=== PATIENT | female | born 1965 | race Two or more races ===

== ENCOUNTER 2024-08-25 14:01 | Inpatient (IN) | payer MEDICAID, BC ==
[~2024-08-25] VITALS: Ht 152.4 cm; Wt 83.9 kg
[2024-08-25] MEDS: MORPHINE SULFATE INJ 2 MG/ml SYRG IV ONE (15:00)
[2024-08-25] MEDS: SODIUM CHLORIDE 0.9% 500 ML IV ONE (15:00)
[2024-08-25 15:18] LABS: Hematocrit 40.5 % (36.0-46.0); Hemoglobin 13.3 g/dL (12.2-16.2); Mean Corpuscular Hemoglobin 29.7 pg (28.0-32.0); Mean Corpuscular Volume 90.6 fL (80.0-100.0); Nucleated Red Blood Cells % 0.1 %
[2024-08-25 15:19] LABS: Urine Budding Yeast MODERATE /hpf (None Seen); Urine Protein, UAD TRACE (Negative)
[2024-08-25 15:25] LABS: Potassium 4.2 mmol/L (3.5-5.1); Sodium 144 mmol/L (136-145)
[2024-08-25 15:26] LABS: Anion Gap 8 (5-15); Carbon Dioxide 28 mmol/L (20-31)
[2024-08-25 15:27] LABS: Calcium 9.4 mg/dL (8.7-10.4); Chloride 108 mmol/L (98-107)
[2024-08-25 15:31] LABS: BUN/Creatinine Ratio 21.3 (10.0-20.0); Blood Urea Nitrogen 13 mg/dL (9-23); Glucose 95 mg/dL (74-106)
--- NOTE | 2024-08-25 15:45 | ED.PDOC ---
GI ASSESSMENT HPI Comments Patient is a 59-year-old female with a past medical history of hypertension presented to the ED with a chief complaint of lower abdominal pain for 1 day. Patient reports that last night she started to have lower abdominal pain which was intermittent with the episodes of severe pain, crampy and sharp in character, associated with multiple episodes of watery diarrhea, pain improved every time after she has a bowel movement, associated with the chills. Patient denied any nausea or vomiting, no blood in stool, no recent sick contacts, no fever, no palpitations. Patient denies any constipation and reports regularly she has bowel movements every day or every other day. Chief Complaint: Abdominal Pain Time Seen by MD: 14:42 Primary Care Provider: Brady Burt Notes: Nurses Notes, Medications, Allergies Allergies: Coded Allergies: NO KNOWN ALLERGIES (Unverified , 09/30/12) Information Source: Patient, Relative (GrandChild) Mode of Arrival: Ambulatory Timing: Hours Duration: Since onset, Intermittent Quality: Cramping, Sharp Vomitus: None Stool: Watery Severity: Mild, Moderate Recent: None Recent Hx of: Abdominal Surgery Pain Location: RLQ, LLQ, Suprapubic Modifying Factors: Nothing Associated sign and symptoms: Diarrhea Past Medical History Past Medical History (Other): Hypertension, migraine Surgical History: Cholecystectomy, Hysterectomy ALLERGIST History: No Pertinent ALLERGIST History Family History Family History: Reviewed,noncontributory to illness, No family hx of Cancer, No family hx of DM, No family hx of Heart niles, No family hx of HTN, No family hx ofKidney niles, No family hx of Liver niles, No family hx of Lung niles, No family hx of Stroke Social History Smoker: Non-Smoker Alcohol: Denies ETOH Use Drugs: Denies Drug Use Constitutional: reports: chills, fatigue EENTM: denies: blurred vision, double vision, ear bleeding, ear discharge, ear drainage, ear pain, ear ringing, eye pain, eye redness, hearing loss, mouth pain, mouth swelling, nasal discharge, nose bleeding, nose congestion, nose pain, photophobia, tearing, throat pain, throat swelling, voice changes, others Respiratory: denies: cough, hemoptysis, orthopnea, SOB at rest, shortness of breath, SOB with excertion, stridor, wheezing, others Cardiovascular: denies: chest pain, dizzy spells, diaphoresis, Dyspnea on exertion, edema, irregular heart beat, left arm pain, lightheadedness, palpitations, PND, syncope, others Gastrointestinal: reports: abdominal pain (Left lower quadrant, suprapubic, right lower quadrant tenderness), diarrhea Genitourinary: denies: abnormal vagina bleeding, burning, dyspareunia, dysuria, flank pain, frequency, hematuria, incontinence, pain, , vagina discharge, urgency, others Neurological: denies: dizziness, fainting, headache, left sided numbness, left sided weakness, numbness, paresthesia, pre-existing deficit, right sided numbness, right sided weakness, seizure, speech problems, tingling, tremors, weakness, others Musculoskeletal: denies: back pain, gout, joint pain, joint swelling, muscle pain, muscle stiffness, neck pain, others Integumetry: denies: bruises, change in color, change in hair/nails, dryness, laceration, lesions, lumps, rash, wounds, others Allergic/Immunocompromised: denies: Difficulty Healing, Frequent Infections, Hives, Itching, others Hematologic/Lymphatic: denies: anemia, blood clots, easy bleeding, easy bruising, swollen glands, others Endocrine: denies: excessive hunger, excessive sweating, excessive thirst, excessive urination, flushing, intolerance to cold, intolerance to heat, unexplained weight gain, unexplained weight loss, others Psychiatric: denies: anxiety, bipolar disorder, depression, hopeless, panic disorder, schizophrenia, sleepless, suicidal, others Physical Exam General Appearance: Mild Distress HEENT: Normal ENT Inspection, Pharynx Normal, TMs Normal Neck: Full Range of Motion, Non-Tender, Normal, Normal Inspection Respiratory: Chest Non-Tender, Lungs Clear, No Accessory Muscle Use, No Respiratory Distress, Normal Breath Sounds Cardiovascular: No Edema, No JVD, No Murmur, No Gallop, Normal Peripheral Pulses, Regular Rate/Rhythm Breast Exam: Deferred Gastrointestinal: LLQ, RLQ, Suprapubic, Tenderness Genitalia: Deferred Pelvic: Deferred Rectal: Deferred Extremities: No calf tenderness, Normal capillary refill, Normal inspection, Normal range of motion, Non-tender, No pedal edema Neurologic: Alert, 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 Was a procedure done?: No GI differential Dx Differential Diagnosis: Other Other Differential Diagnosis Diverticulitis, appendicitis, ovarian abscess, colitis, proctitis, gastroenteritis X-Ray, Labs, Meds, VS Vital Signs Date Time Temp Pulse Resp B/P (MAP) Pulse Ox O2 Delivery O2 Flow Rate FiO2 08/25/24 17:27 78 22 145/84 08/25/24 15:46 93 18 95 Room Air 08/25/24 15:46 91 18 129/85 (100) 94 08/25/24 15:00 90 18 129/85 08/25/24 14:08 98.5 95 18 138/74 (95) 95 98.5 Lab Test 08/25/24 15:06 08/25/24 14:14 Range/Units White Blood Count 11.0 H 4.4-10.8 10^3/uL Red Blood Count 4.46 4.0-5.20 10^6/uL Hemoglobin 13.3 12.2-16.2 g/dL Hematocrit 40.5 36.0-46.0 % Mean Corpuscular Volume 90.6 80.0-100.0 fL Mean Corpuscular Hemoglobin 29.7 28.0-32.0 pg Mean Corpuscular Hemoglobin Concent 32.8 32.0-36.0 g/dL Red Cell Distribution Width 14.1 11.8-14.3 % Platelet Count 290 140-450 10^3/uL Mean Platelet Volume 8.4 6.9-10.8 fL Neutrophils (%) (Auto) 70.6 37.0-80.0 % Lymphocytes (%) (Auto) 23.1 10.0-50.0 % Monocytes (%) (Auto) 5.3 0.0-12.0 % Eosinophils (%) (Auto) 0.8 0.0-7.0 % Basophils (%) (Auto) 0.2 0.0-2.0 % Neutrophils # (Auto) 7.8 1.6-8.6 10 ^3/uL Lymphocytes # (Auto) 2.5 0.4-5.4 10 ^3/uL Monocytes # (Auto) 0.6 0-1.3 10 ^3/uL Eosinophils # (Auto) 0.1 0-0.8 10 ^3/uL Basophils # (Auto) 0 0-0.2 10 ^3/uL Nucleated Red Blood Cells 0.1 % Sodium Level 144 136-145 mmol/L Potassium Level 4.2 3.5-5.1 mmol/L Chloride Level 108 H 98-107 mmol/L Carbon Dioxide Level 28 20-31 mmol/L Anion Gap 8 5-15 Blood Urea Nitrogen 13 9-23 mg/dL Creatinine 0.61 0.550-1.02 mg/dL Glomerular Filtration Rate Calc 102 >90 mL/min BUN/Creatinine Ratio 21.3 H 10.0-20.0 Serum Glucose 95 74-106 mg/dL Calcium Level 9.4 8.7-10.4 mg/dL Urine Color Colorless Yellow Urine Clarity Turbid H Clear Urine pH 8.0 5.0-9.0 Urine Specific [place] 1.021 1.001-1.035 Urine Protein Trace H Negative Urine Ketones Negative Negative Urine Blood 2+ H Negative /uL Urine Nitrite Negative Negative Urine Bilirubin Negative Negative Urine Urobilinogen Normal Negative mg/dL Urine Leukocyte Esterase 2+ Negative /uL Urine RBC 24 0 - 4 /hpf Urine Microscopic WBC 13 H 0-5 /HPF Urine Squamous Epithelial Cells Mod <5 /hpf Urine Bacteria None seen None Seen /hpf Urine Yeast (Budding) Moderate None Seen /hpf Urine Glucose Normal Normal mg/dL Current Medications Medications (Trade) Dose Ordered Sig/Felice Route Start Time Stop Time Status Last Admin Sodium Chloride 500 ml @ 500 mls/hr Q1H ONCE IV 08/25/24 15:00 08/25/24 15:59 DC 08/25/24 15:00 Morphine Sulfate 2 mg ONCE ONCE IV 08/25/24 15:00 08/25/24 15:04 DC 08/25/24 15:00 Time of 1ST Reevaluation: 17:12 Reevaluation 1ST: Unchanged Patient Education/Counseling: Diagnosis, Treatment Family Education/Counseling: No Family Present SEPSIS Sepsis Screen Date sepsis recognized/suspect: Aug 25, 2024 Time Sepsis recognized/suspect: 1408 Recent Procedure: No On Antibiotic Therapy: No Respiratory Rate >20: No Heart Rate >90: No Temp<36 C (96.8 F) or >38.3 C: No SBP <90 or MAP <65 mmHG: No New Acute Mental Status Change: No Is the patient on CPAP, BIPAP,: No Physician Orders Ct Ab Pel Wo Con-No Oral Or Iv (08/25/24 14:47) Heplock Iv (08/25/24 ) Vital Signs Date Time Temp Pulse Resp B/P (MAP) Pulse Ox O2 Delivery O2 Flow Rate FiO2 08/25/24 17:27 78 22 145/84 08/25/24 15:46 93 18 95 Room Air 08/25/24 15:46 91 18 129/85 (100) 94 08/25/24 15:00 90 18 129/85 08/25/24 14:08 98.5 95 18 138/74 (95) 95 98.5 Laboratory Tests Test 08/25/24 15:06 White Blood Count 11.0 10^3/uL (4.4-10.8) H Medications Medications Dose Ordered Sig/Felice Route Start Time Stop Time Status Last Admin Dose Admin Morphine Sulfate 2 mg ONCE ONCE IV 08/25/24 15:00 08/25/24 15:04 DC 08/25/24 15:00 Sodium Chloride 500 ml @ 500 mls/hr Q1H ONCE IV 08/25/24 15:00 08/25/24 15:59 DC 08/25/24 15:00 Departure 1 Departure Time of Disposition: 18:00 Impression: Primary Impression: Gastroenteritis Additional Impressions: Colitis Proctitis Irritable bowel syndrome UTI (urinary tract infection) Pulmonary nodule Disposition: ADMITTED INPATIENT Condition: Fair Critical Care Note Critical Care Time?: No Stability Stability form required: No Heart Score Heart Score: Heart Score Response (Comments) Value History N/A 0 EKG N/A 0 Age N/A 0 Risk Factors N/A 0 Troponin N/A 0 Total 0 LANA ADAME RESIDENT Aug 25, 2024 15:45
--- NOTE | 2024-08-25 16:31 | DVH ---
Indication: lower abd pain Technique: CT axial images of the abdomen and pelvis are obtained without contrast. Coronal and sagit onur reformats were obtained. Radiation Dose Information: CTDI volume is 22.78 mGy. Dose-length product is 1265.31 mGy*cm Comparison: None FINDINGS: There is limited interpretation of the abdomen and pelvis without administration of intravenous contr ast. Lung bases demonstrate 6 mm right middle lobe nodule. Adrenal glands, spleen, pancreas unremarkable in shape. Cholecystectomy. Liver unremarkable in shap e. No hydronephrosis, nephrolithiasis. Small hiatal hernia. Stomach partially distended. Small bowel loops normal in caliber. Descending and rectosigmoid colon wall thickening with surrounding stranding. Colonic diverticula. N ormal appendix. Bladder partially distended. No free pelvic fluid. No inguinal lymphadenopathy. No aggressive osseous process. IMPRESSION: Descending and rectosigmoid colon wall thickening with surrounding stranding. Differential considera tions include colitis, inflammatory bowel disease. Cholecystectomy. 6 mm right middle lobe pulmonary nodule. Recommend follow-up per Fleischner society criteria. Low wa ll Other findings as described
[2024-08-25] MEDS: cefTRIAXone 1GM/50ML D5W 50 ML IV ONE (18:39)
[2024-08-25 20:44] VITALS: RESP 18; O2SAT 98
[2024-08-25 20:58] VITALS: BP 153/92; PULSE 87; RESP 18; TEMP 96.5; O2SAT 96
[2024-08-25 21:15] VITALS: PULSE 87; RESP 18; O2SAT 96
[2024-08-25] MEDS ORDERED: HYDROcodone-ACET 5/325MG TAB PO PRN (22:00)
[2024-08-25] MEDS ORDERED: ONDANSETRON HCL 4 MG/2 ML VIAL IV PRN (22:00)
--- NOTE | 2024-08-25 22:03 | DVHHP2 ---
History of Present Illness Reason for Visit: Abdominal pain History of Present Illness 59-year-old female presents for evaluation of abdominal pain. Patient reports a one day history of lower abdominal pain with associated episodes of nausea and watery diarrhea. Denies fever or chills. No other acute complaints reported. Past Medical History Hypertension Past Surgical History Hysterectomy, cholecystectomy Review of Systems Review of Systems Review of systems are currently negative otherwise addressed in HPI. Allergies: Coded Allergies: NO KNOWN ALLERGIES (Unverified , 09/30/12) Exam Vital Signs Vital Signs Date Time Temp Pulse Resp B/P (MAP) Pulse Ox O2 Delivery O2 Flow Rate FiO2 08/25/24 20:58 96.5 87 18 153/92 (112) 96 96.5 08/25/24 20:44 Room Air* 0 21 Exam Gen: 59-year-old female in mild distress Skin: Warm, dry, normal color and texture, no rash. HEENT: Normocephalic atraumatic, mucous membranes moist and pink. Neck: Cervical and supraclavicular nodes normal without enlargement, trachea is midline, thyroid gland is normal without masses. Pulmonary: Clear to auscultation and percussion bilaterally. Cardiac: Regular rate and rhythm. No murmur Abdomen: Soft, nontender, nondistended, bowel sounds present all 4 quadrants, no guarding, no rigidity, no organomegaly. Extremities: No cyanosis, clubbing, no edema Neuro: Cranial nerves II through XII grossly intact, normal affect and speech, no focal motor deficits. Labs/Xrays ORDERING PHYSICIAN: LANA ADAME RESIDENT PROCEDURE(s): ABPL - CT AB PEL WO CON-NO ORAL OR IV REASON: lower abd pain ORDER NUMBER(s): [id number], ACCESSION NUMBER(s): [id number] Indication: lower abd pain Technique: CT axial images of the abdomen and pelvis are obtained without contrast. Coronal and sagittal reformats were obtained. Radiation Dose Information: CTDI volume is 22.78 mGy. Dose-length product is 1265.31 mGy*cm Comparison: None FINDINGS: There is limited interpretation of the abdomen and pelvis without administration of intravenous contrast. Lung bases demonstrate 6 mm right middle lobe nodule. Adrenal glands, spleen, pancreas unremarkable in shape. Cholecystectomy. Liver unremarkable in shape. No hydronephrosis, nephrolithiasis. Small hiatal hernia. Stomach partially distended. Small bowel loops normal in caliber. Descending and rectosigmoid colon wall thickening with surrounding stranding. Colonic diverticula. Normal appendix. Bladder partially distended. No free pelvic fluid. No inguinal lymphadenopathy. No aggressive osseous process. IMPRESSION: Descending and rectosigmoid colon wall thickening with surrounding stranding. Differential considerations include colitis, inflammatory bowel disease. Cholecystectomy. 6 mm right middle lobe pulmonary nodule. Recommend follow-up per Fleischner society criteria. Low wall Other findings as described ATED BY: MONSERRAT TIMMONS MD Labs Test 08/25/24 15:06 08/25/24 14:14 Range/Units White Blood Count 11.0 H 4.4-10.8 10^3/uL Red Blood Count 4.46 4.0-5.20 10^6/uL Hemoglobin 13.3 12.2-16.2 g/dL Hematocrit 40.5 36.0-46.0 % Mean Corpuscular Volume 90.6 80.0-100.0 fL Mean Corpuscular Hemoglobin 29.7 28.0-32.0 pg Mean Corpuscular Hemoglobin Concent 32.8 32.0-36.0 g/dL Red Cell Distribution Width 14.1 11.8-14.3 % Platelet Count 290 140-450 10^3/uL Mean Platelet Volume 8.4 6.9-10.8 fL Neutrophils (%) (Auto) 70.6 37.0-80.0 % Lymphocytes (%) (Auto) 23.1 10.0-50.0 % Monocytes (%) (Auto) 5.3 0.0-12.0 % Eosinophils (%) (Auto) 0.8 0.0-7.0 % Basophils (%) (Auto) 0.2 0.0-2.0 % Neutrophils # (Auto) 7.8 1.6-8.6 10 ^3/uL Lymphocytes # (Auto) 2.5 0.4-5.4 10 ^3/uL Monocytes # (Auto) 0.6 0-1.3 10 ^3/uL Eosinophils # (Auto) 0.1 0-0.8 10 ^3/uL Basophils # (Auto) 0 0-0.2 10 ^3/uL Nucleated Red Blood Cells 0.1 % Sodium Level 144 136-145 mmol/L Potassium Level 4.2 3.5-5.1 mmol/L Chloride Level 108 H 98-107 mmol/L Carbon Dioxide Level 28 20-31 mmol/L Anion Gap 8 5-15 Blood Urea Nitrogen 13 9-23 mg/dL Creatinine 0.61 0.550-1.02 mg/dL Glomerular Filtration Rate Calc 102 >90 mL/min BUN/Creatinine Ratio 21.3 H 10.0-20.0 Serum Glucose 95 74-106 mg/dL Calcium Level 9.4 8.7-10.4 mg/dL Urine Color Colorless Yellow Urine Clarity Turbid H Clear Urine pH 8.0 5.0-9.0 Urine Specific [place] 1.021 1.001-1.035 Urine Protein Trace H Negative Urine Ketones Negative Negative Urine Blood 2+ H Negative /uL Urine Nitrite Negative Negative Urine Bilirubin Negative Negative Urine Urobilinogen Normal Negative mg/dL Urine Leukocyte Esterase 2+ Negative /uL Urine RBC 24 0 - 4 /hpf Urine Microscopic WBC 13 H 0-5 /HPF Urine Squamous Epithelial Cells Mod <5 /hpf Urine Bacteria None seen None Seen /hpf Urine Yeast (Budding) Moderate None Seen /hpf Urine Glucose Normal Normal mg/dL Assessment/Plan Assessment/Plan Assessment Acute abdominal pain Acute colitis UTI Plan Admit the patient to [facility] to the hospitalist GI consult Flagyl Clear liquid diet Pain management Continue treatment per orders Plan discussed with: Patient My Orders Orders - MARTIR SIFUENTES AGACNP Procedure Category Date Status Time Admit ADMIT 08/25/24 Transmitted 19:55 Clear Liq Diet DIET 08/26/24 Transmitted Breakfast Hepatitis B Surface LAB 08/25/24 Logged Antigen 21:55 Hepatitis C Antibody LAB 08/25/24 Logged 21:55 Stool Bacterial RONY 08/25/24 Uncollected Culture 21:57 Clostridium Difficile RONY 08/25/24 Uncollected Toxin 21:57 * Gi [facility] Worker CONS 08/25/24 Transmitted 21:57 Pantoprazole PHA 08/26/24 Transmitted (Protonix) 10:00 Basic Metabolic Panel LAB 08/26/24 Verified 04:00 Metronidazole Ivpb PHA 08/25/24 Transmitted Flagyl 22:00 Hydrocodone-Acet PHA 08/25/24 Transmitted 5/325mg Tab ([place] 22:00 Ondansetron Hcl PHA 08/25/24 Transmitted (Zofran) 22:00 Complete Blood Count LAB 08/26/24 Verified 04:00 Condition: Stable KIRAN 08/25/24 Transmitted 21:57 Acetaminophen Tablet PHA 08/25/24 Transmitted (Tylenol Tablet) 22:00 Bedrest With Bathroom KIRAN 08/25/24 Transmitted Privileg 21:57 Morphine Sulfate PHA 08/25/24 Transmitted Injection 22:00 Date of Service: Aug 25, 2024 Billing Provider: MARTIR SIFUENTES Common Visit Codes: [id number] INP/OBS CARE (MOD) MARITR SIFUENTES Aug 25, 2024 22:03
[2024-08-26] VITALS (8 sets, daily range): BP systolic 110–139; BP diastolic 60–85; PULSE 69–86; RESP 16–20; TEMP 96.3–98.4; O2SAT 91–96
[2024-08-26 05:58] LABS: Hematocrit 34.6 % (36.0-46.0); Hemoglobin 11.7 g/dL (12.2-16.2); Mean Corpuscular Hemoglobin 30.3 pg (28.0-32.0); Mean Corpuscular Volume 89.4 fL (80.0-100.0); Nucleated Red Blood Cells % 0.0 %
[2024-08-26 06:13] LABS: Anion Gap 8 (5-15); Carbon Dioxide 27 mmol/L (20-31); Sodium 143 mmol/L (136-145)
[2024-08-26 06:15] LABS: Calcium 8.8 mg/dL (8.7-10.4)
[2024-08-26 06:17] LABS: Chloride 108 mmol/L (98-107); Potassium 3.4 mmol/L (3.5-5.1)
[2024-08-26 06:19] LABS: BUN/Creatinine Ratio 19.2 (10.0-20.0); Blood Urea Nitrogen 10 mg/dL (9-23); Glucose 93 mg/dL (74-106)
[2024-08-26] MEDS: PANTOPRAZOLE 40 MG/10 ML VIAL INJ IV SCH (09:47)
[2024-08-26] MEDS: MORPHINE SULFATE INJ 2 MG/ml SYRG IV PRN (09:47)
[2024-08-26] MEDS: cefTRIAXone 1GM/50ML D5W 50 ML IV ONE (13:48)
--- NOTE | 2024-08-26 15:22 | DVHPN2 ---
Subjective Abdominal pain still present lower quadrants bilateral. But improving. Reviewed: H&P Changes from previous H/P or p: No Changes General: Per HPI Objective Vitals Vital Signs Date Time Temp Pulse Resp B/P (MAP) Pulse Ox O2 Delivery O2 Flow Rate FiO2 08/26/24 12:56 98.1 74 20 122/66 (84) 92 98.1 08/26/24 08:10 Room Air* 0 21 Intake/Output Intake and Output 08/26/24 07:00 Intake Total 750 ml Balance 750 ml Intake Oral 50 ml IV Total 700 ml Exam GEN: Healthy appearing, well-developed, NAD. HEENT: NC/AT; MMM. CV: RRR, no m/r/g. LUNGS: CTAB, no w/r/c. ABD: Tenderness lower quadrants bilateral. No guarding no rigidity. Bowel sounds present and normal EXT: skin Warm, well perfused. no rashes. No clubbing, cyanosis, or edema. NEURO: Ambulating with no limitations. No focal deficits. Medications Current Medications Medications Dose Ordered Sig/Felice Route Start Time Stop Time Status Last Admin Dose Admin Pantoprazole Sodium 40 mg DAILY IV 08/26/24 10:00 08/26/24 09:47 40 MG Metronidazole 100 ml @ 100 mls/hr Q8HR@0200,1000,1800 IV 08/26/24 02:00 08/26/24 09:48 100 MLS/HR Acetaminophen/ Hydrocodone Bitart 1 tab Q4HP PRN PO 08/25/24 22:00 Ondansetron HCl 4 mg Q4HP PRN IV 08/25/24 22:00 Acetaminophen 650 mg Q6HP PRN PO 08/25/24 22:00 Morphine Sulfate 2 mg Q6HPRN PRN IV 08/25/24 22:00 08/26/24 09:47 2 MG Ceftriaxone Sodium 50 ml @ 100 mls/hr DAILY@09 IV 08/27/24 09:00 Laboratory Results Laboratory Tests 08/26/24 05:28 Chemistry Test 08/26/24 05:28 Calcium Level 8.8 mg/dL (8.7-10.4) Urinalysis Test 08/25/24 14:14 Urine Color Colorless (Yellow) Urine Clarity Turbid (Clear) H Urine pH 8.0 (5.0-9.0) Urine Specific [place] 1.021 (1.001-1.035) Urine Protein Trace (Negative) H Urine Ketones Negative (Negative) Urine Blood 2+ /uL (Negative) H Urine Nitrite Negative (Negative) Urine Bilirubin Negative (Negative) Urine Urobilinogen Normal mg/dL (Negative) Urine Leukocyte Esterase 2+ /uL (Negative) Urine RBC 24 /hpf (0 - 4) Urine Microscopic WBC 13 /HPF (0-5) H Urine Squamous Epithelial Cells Mod /hpf (<5) Urine Bacteria None seen /hpf (None Seen) Urine Yeast (Budding) Moderate /hpf (None Seen) Urine Glucose Normal mg/dL (Normal) Labs and/or images reviewed: Labs reviewed by me, Image(s) reviewed by me Assessment/Plan Assessment/Plan 08/26- patient here for intractable abdominal pain. History of hypertension. She has some abdominal surgeries including cholecystectomy and hysterectomy. Bowel sounds present. Abdominal pain in lower quadrants bilaterally. CT concerning for acute colitis. GI consulted. UTI also possible with the UA significant. We will continue IV ceftriaxone and IV metronidazole. Clear liquid diet. Patient is constipated but we will hold off any laxatives right now because of acute colitis. Diagnosis: Acute intractable abdominal pain Acute colitis Acute complicated UTI Acute on chronic constipation Leukocytosis Hypokalemia, resolved Tachycardia Tachypnea Sirs without end-organ damage Hypertension History hysterectomy History cholecystectomy Plan: -IV ceftriaxone, IV metronidazole - clear liquid diet -p.r.n. pain control -PRN antiemetic -holding off any laxatives. As there is active acute colitis. -GI consulted Clear liquid diet DVT prophylaxis ambulating GI prophylaxis-Protonix IV Med surge Full code Plan discussed with: Patient My Orders Orders - PATSY LESTER MD Procedure Category Date Status Time Ceftriaxone 1gm/50ml PHA 08/27/24 In Process D5w (Rocephin) 09:00 Date of Service: Aug 26, 2024 Billing Provider: PATSY LESTER MD Common Visit Codes: [id number] INP/OBS CARE(HIGH) PATSY LESTER MD Aug 26, 2024 15:22
[2024-08-26] MEDS: D5W/SOD CHL 0.45% 1,000 ML IV ONE (17:08)
[2024-08-26] MEDS: ACETAMINOPHEN 325 MG TAB PO PRN (20:58)
[2024-08-27] VITALS (7 sets, daily range): BP systolic 122–142; BP diastolic 59–90; PULSE 61–71; RESP 16–18; TEMP 97.6–97.8; O2SAT 95–100
[2024-08-27 06:29] LABS: Alanine Aminotransferase 13 U/L (7-40); Albumin 3.8 g/dL (3.2-4.8); Alkaline Phosphatase 74 U/L (46-116); Anion Gap 9 (5-15); BUN/Creatinine Ratio 13.3 (10.0-20.0); Calcium 9.7 mg/dL (8.7-10.4); Carbon Dioxide 28 mmol/L (20-31); Chloride 107 mmol/L (98-107); Glucose 105 mg/dL (74-106); Sodium 144 mmol/L (136-145); Total Protein 7.0 g/dL (5.7-8.2)
[2024-08-27 06:30] LABS: Bilirubin, Total 0.5 mg/dL (0.2-1.0)
[2024-08-27 06:33] LABS: Blood Urea Nitrogen 8 mg/dL (9-23); Potassium 3.4 mmol/L (3.5-5.1)
[2024-08-27] MEDS: cefTRIAXone 1GM/50ML D5W 50 ML IV SCH (09:28)
[2024-08-27 10:59] LABS: Hepatitis B Surface Antigen Negative (Negative); Hepatitis C Antibody Negative (Negative)
--- NOTE | 2024-08-27 15:12 | DVHINCON2 ---
Date of service: Aug 27, [address] Hussein Reason for Consultation Abdominal pain with diarrhea History of Present Illness This 59-year-old female with a history of hypertension presented to the emergency room with complaints of lower abdominal pain for about a day with a very severe diarrhea no blood in the stools. Patient has some mild feverishness and chills no history of any unusual food ingestion no history of any travel Past Medical History Unremarkable Past Surgical History Cholecystectomy hysterectomy Family History: Patient reports no known family medical history. Family History Noncontributory Social History Denies smoking or drinking Allergies: Coded Allergies: NO KNOWN ALLERGIES (Unverified , 09/30/12) Current Medications Current Medications Medications (Trade) Dose Ordered Sig/Felice Route PRN Reason Start Time Stop Time Status Last Admin Ceftriaxone Sodium 50 ml @ 100 mls/hr DAILY@09 IV 08/27/24 09:00 08/27/24 09:28 Review of Systems Noncontributory Vital Signs Vital Signs Date Time Temp Pulse Resp B/P (MAP) Pulse Ox O2 Delivery O2 Flow Rate FiO2 08/27/24 13:00 97.8 66 17 142/90 (107) 95 97.8 08/27/24 08:10 Room Air* 0 21 Physical Exam Moderately built and nourished female in no acute distress HEENT examination no pallor no icterus Lungs clear Unremarkable cardiovascular Soft mild tenderness in both lower quadrants no rigidity no guarding no masses bowel sounds Extremities no edema Labs/Diagnostic Data Labs Test 08/27/24 05:39 08/26/24 05:28 08/25/24 15:06 08/25/24 14:14 Range/Units Sodium Level 144 136-145 mmol/L Potassium Level 3.4 L 3.5-5.1 mmol/L Chloride Level 107 98-107 mmol/L Carbon Dioxide Level 28 20-31 mmol/L Anion Gap 9 5-15 Blood Urea Nitrogen 8 L 9-23 mg/dL Creatinine 0.60 0.550-1.02 mg/dL Glomerular Filtration Rate Calc 103 >90 mL/min BUN/Creatinine Ratio 13.3 10.0-20.0 Serum Glucose 105 74-106 mg/dL Calcium Level 9.7 8.7-10.4 mg/dL Total Bilirubin 0.5 0.2-1.0 mg/dL Aspartate Amino Transferase (AST) 20 13-40 U/L Alanine Aminotransferase (ALT) 13 7-40 U/L Alkaline Phosphatase 74 46-116 U/L Total Protein 7.0 5.7-8.2 g/dL Albumin 3.8 3.2-4.8 g/dL White Blood Count 7.7 # 4.4-10.8 10^3/uL Red Blood Count 3.87 L 4.0-5.20 10^6/uL Hemoglobin 11.7 L 12.2-16.2 g/dL Hematocrit 34.6 #L 36.0-46.0 % Mean Corpuscular Volume 89.4 80.0-100.0 fL Mean Corpuscular Hemoglobin 30.3 28.0-32.0 pg Mean Corpuscular Hemoglobin Concent 33.9 32.0-36.0 g/dL Red Cell Distribution Width 13.7 11.8-14.3 % Platelet Count 263 140-450 10^3/uL Mean Platelet Volume 8.2 6.9-10.8 fL Neutrophils (%) (Auto) 60.2 37.0-80.0 % Lymphocytes (%) (Auto) 31.8 10.0-50.0 % Monocytes (%) (Auto) 6.0 0.0-12.0 % Eosinophils (%) (Auto) 1.8 0.0-7.0 % Basophils (%) (Auto) 0.2 0.0-2.0 % Neutrophils # (Auto) 4.7 1.6-8.6 10 ^3/uL Lymphocytes # (Auto) 2.5 0.4-5.4 10 ^3/uL Monocytes # (Auto) 0.5 0-1.3 10 ^3/uL Eosinophils # (Auto) 0.1 0-0.8 10 ^3/uL Basophils # (Auto) 0 0-0.2 10 ^3/uL Nucleated Red Blood Cells 0.0 % Hepatitis B Surface Antigen Negative Negative Hepatitis C Antibody Negative Negative Urine Color Colorless Yellow Urine Clarity Turbid H Clear Urine pH 8.0 5.0-9.0 Urine Specific [place] 1.021 1.001-1.035 Urine Protein Trace H Negative Urine Ketones Negative Negative Urine Blood 2+ H Negative /uL Urine Nitrite Negative Negative Urine Bilirubin Negative Negative Urine Urobilinogen Normal Negative mg/dL Urine Leukocyte Esterase 2+ Negative /uL Urine RBC 24 0 - 4 /hpf Urine Microscopic WBC 13 H 0-5 /HPF Urine Squamous Epithelial Cells Mod <5 /hpf Urine Bacteria None seen None Seen /hpf Urine Yeast (Budding) Moderate None Seen /hpf Urine Glucose Normal Normal mg/dL Assessment 60 59-year-old with a history of hypertension with complaints of lower abdominal pain which was sharp watery with watery diarrhea. No bleeding patient is had a CT scan showed there was evidence of colitis in the left side of the colon possibly infectious antibiotics and feeling better no gross bleeding Abdomen is soft mild tenderness no rigidity no guarding Impression Infectious colitis possible Plan/Recommendation IV antibiotics and see the response in case symptoms persist may need further evaluations including colonoscopy etc. if necessary Thank you Dr. Jenny Brown discussed with: Patient HAYES CARR MD Aug 27, 2024 15:12
[2024-08-27] MEDS: FLEET ENEMA(ADULT) 135 ML PR ONE (16:13)
[2024-08-27] MEDS ORDERED: LACT10SO3 PO (18:17)
[2024-08-27] MEDS ORDERED: AUG875T PO (18:17)
--- NOTE | 2024-08-27 18:23 | DVHDS2 ---
Discharge Summary Date of Admission Aug 25, 2024 at 19:55 Date of Discharge: Aug 27, 2024 Labs/Diagnostic Data: Laboratory Results Test 08/27/24 05:39 08/26/24 05:28 08/25/24 15:06 08/25/24 14:14 Sodium Level 144 mmol/L (136-145) Potassium Level 3.4 mmol/L (3.5-5.1) Chloride Level 107 mmol/L (98-107) Carbon Dioxide Level 28 mmol/L (20-31) Anion Gap 9 (5-15) Blood Urea Nitrogen 8 mg/dL (9-23) Creatinine 0.60 mg/dL (0.550-1.02) Glomerular Filtration Rate Calc 103 mL/min (>90) BUN/Creatinine Ratio 13.3 (10.0-20.0) Serum Glucose 105 mg/dL (74-106) Calcium Level 9.7 mg/dL (8.7-10.4) Total Bilirubin 0.5 mg/dL (0.2-1.0) Aspartate Amino Transferase (AST) 20 U/L (13-40) Alanine Aminotransferase (ALT) 13 U/L (7-40) Alkaline Phosphatase 74 U/L (46-116) Total Protein 7.0 g/dL (5.7-8.2) Albumin 3.8 g/dL (3.2-4.8) White Blood Count 7.7 10^3/uL (4.4-10.8) Red Blood Count 3.87 10^6/uL (4.0-5.20) Hemoglobin 11.7 g/dL (12.2-16.2) Hematocrit 34.6 % (36.0-46.0) Mean Corpuscular Volume 89.4 fL (80.0-100.0) Mean Corpuscular Hemoglobin 30.3 pg (28.0-32.0) Mean Corpuscular Hemoglobin Concent 33.9 g/dL (32.0-36.0) Red Cell Distribution Width 13.7 % (11.8-14.3) Platelet Count 263 10^3/uL (140-450) Mean Platelet Volume 8.2 fL (6.9-10.8) Neutrophils (%) (Auto) 60.2 % (37.0-80.0) Lymphocytes (%) (Auto) 31.8 % (10.0-50.0) Monocytes (%) (Auto) 6.0 % (0.0-12.0) Eosinophils (%) (Auto) 1.8 % (0.0-7.0) Basophils (%) (Auto) 0.2 % (0.0-2.0) Neutrophils # (Auto) 4.7 10 ^3/uL (1.6-8.6) Lymphocytes # (Auto) 2.5 10 ^3/uL (0.4-5.4) Monocytes # (Auto) 0.5 10 ^3/uL (0-1.3) Eosinophils # (Auto) 0.1 10 ^3/uL (0-0.8) Basophils # (Auto) 0 10 ^3/uL (0-0.2) Nucleated Red Blood Cells 0.0 % Hepatitis B Surface Antigen Negative (Negative) Hepatitis C Antibody Negative (Negative) Urine Color Colorless (Yellow) Urine Clarity Turbid (Clear) Urine pH 8.0 (5.0-9.0) Urine Specific [place] 1.021 (1.001-1.035) Urine Protein Trace (Negative) Urine Ketones Negative (Negative) Urine Blood 2+ /uL (Negative) Urine Nitrite Negative (Negative) Urine Bilirubin Negative (Negative) Urine Urobilinogen Normal mg/dL (Negative) Urine Leukocyte Esterase 2+ /uL (Negative) Urine RBC 24 /hpf (0 - 4) Urine Microscopic WBC 13 /HPF (0-5) Urine Squamous Epithelial Cells Mod /hpf (<5) Urine Bacteria None seen /hpf (None Seen) Urine Yeast (Budding) Moderate /hpf (None Seen) Urine Glucose Normal mg/dL (Normal) Other Laboratory Tests 08/27/24 05:39 08/26/24 05:28 Brief Hx & Hospital Course: History of Present Illness 59-year-old female with past medical history of hypertension, hysterectomy, cholecystectomy, presents for evaluation of abdominal pain. Patient reports a one day history of lower abdominal pain with associated episodes of nausea and watery diarrhea. Denies fever or chills. No other acute complaints reported. 08/26- patient here for intractable abdominal pain. History of hypertension. She has some abdominal surgeries including cholecystectomy and hysterectomy. Bowel sounds present. Abdominal pain in lower quadrants bilaterally. CT concerning for acute colitis. GI consulted. UTI also possible with the UA significant. We will continue IV ceftriaxone and IV metronidazole. Clear liquid diet. Patient is constipated but we will hold off any laxatives right now because of acute colitis. /- pain is resolving patient is feeling well. Tolerating p.o.. No nausea and vomiting. Enema done inpatient having adequate bowel movement. Vital signs stable patient is stable for discharge per plan below Diagnosis: Acute intractable abdominal pain Acute colitis Acute complicated UTI Acute on chronic constipation Leukocytosis Hypokalemia, resolved Tachycardia Tachypnea Sirs without end-organ damage Hypertension History hysterectomy History cholecystectomy discharge plan: -Take Augmentin 875 mg twice daily for next 5 days -Take lactulose 10 g twice daily for next 7 days - take full liquid diet -follow up with PCP to review discharge. PCP to consider GI eval for constipation. -Continue home medications not mentioned above Condition at Discharge: Fair Final Diagnosis/Problems List Acute intractable abdominal pain Acute colitis Acute complicated UTI Acute on chronic constipation Leukocytosis Hypokalemia, resolved Tachycardia Tachypnea Sirs without end-organ damage Hypertension History hysterectomy History cholecystectomy Discharge Disposition: Home Discharge Instruct/Medications Diet: See Comment Diet comment: Full liquid diet Activity: No Restrictions, As Tolerated Follow Up/Referral: See below Medications: See below Scheduled Amoxicillin & Pot Clavulanate (Augmentin Tablet), 875 MG PO BID Lactulose (Lactulose), 10 GM PO BID Discharge Statement: "Patient was advised to return to the ER or call 911 if any headaches, dizziness, shortness of breath, chest pain, abdominal pain, bleeding, fevers, or worsening of medical condition. Patient was counseled about treatment plan, medications, possible side effects, patientverbalized understanding. All questions were answered to the best of my ability. This discharge took greater then 30 minutes in planning, reviewing documentation, counseling the patient, and discussing with other team members." Date of Service: Aug 27, 2024 Billing Provider: PATSY LESTER MD Common Visit Codes: 45351-TFX/OBS DISCH DAY >30min PATSY LESTER MD Aug 27, 2024 18:23
== END 2024-08-27 20:05 | disposition home or self-care (01) | DRG 249 ==
LOC: ER 14:01 → OVERFLOW 19:55 → EAST 20:58
PROVIDERS: ADMIT Student in an Organized Health Care Education/Training Program; ATTEND Student in an Organized Health Care Education/Training Program
DX: A09 Infectious gastroenteritis and colitis, unspecified (principal); R65.10 Systemic inflammatory response syndrome (SIRS) of non-infectious origin without acute organ dysfunction; E87.6 Hypokalemia; K59.09 Other constipation; N39.0 Urinary tract infection, site not specified; R91.1 Solitary pulmonary nodule; G43.909 Migraine, unspecified, not intractable, without status migrainosus; I10 Essential (primary) hypertension; K62.89 Other specified diseases of anus and rectum; Z90.710 Acquired absence of both cervix and uterus
CPT/HCPCS: 36415; 74176; 80048; 80053; 81001; 85025; 86803; 87340; 96361; 96365; 96366; 96375; G0378; J2470; J3490